=== PATIENT | male | born 1950 | race Caucasian/White ===

== ENCOUNTER 2024-05-28 07:19 | Emergency (ER) | payer MEDICARE, MEDICAID ==
[~2024-05-28] VITALS: Ht 185.4 cm; Wt 75.2 kg
[2024-05-28] MEDS ORDERED: CLIN-214 PO (08:05)
[2024-05-28] MEDS: LIDOcaine 1% (10mg/ml)w/preservative inj. 20ml MDV SQ ONE (08:36)
[2024-05-28] MEDS: ketorolac trometh 30MG/ML vial 30 MG/ML VIAL IM ONE (09:09)
[2024-05-28 09:40] VITALS: BP 126/64; PULSE 78; RESP 14; TEMP 98.5; O2SAT 98
== END 2024-05-28 09:41 | disposition home or self-care (01) ==
LOC: ER 07:20
DX: H70.002 Acute mastoiditis without complications, left ear (principal); Z88.1 Allergy status to other antibiotic agents; Z79.2 Long term (current) use of antibiotics
CPT/HCPCS: 10060; 96372; 99283; A6266; A6402; J1885; J3490; Z7610; A6449